=== PATIENT | male | born 1975 | race Caucasian/White ===

== ENCOUNTER 2017-07-17 20:06 | Inpatient (IN) | payer MEDICAID ==
[~2017-07-17] VITALS: Ht 175.3 cm; Wt 83.5 kg
[~2017-07-17 20:06] MED LIST: ZIPR80CA2 PO
[2017-07-17] MEDS ORDERED: ZIPRASIDONE 20 MG INJ IM ONE ×2 (20:48→21:00)
[2017-07-17 20:58] LABS: MICROSCOPIC NOT IND
[2017-07-17 21:02] LABS: CULTURE INDICATED? NO
[2017-07-17 21:05] LABS: ALANINE AMINOTRANSFERASE 200 U/L (12-78); ALBUMIN 2.8 g/dL (3.4-5.0); ANION GAP 10 mmol/L (5-15); CALCIUM 8.7 mg/dL (8.5-10.1); CHLORIDE 110 mmol/L (98-107); CREATININE 0.93 mg/dL (0.7-1.3)
[2017-07-17 21:07] LABS: ALKALINE PHOSPHATASE 142 U/L (45-117); BILIRUBIN,TOTAL 0.2 mg/dL (0.2-1.0); TOTAL PROTEIN 6.9 g/dL (6.4-8.2)
[2017-07-17 21:19] LABS: AMPHETAMINE SCREEN, URINE Negative (Negative); BARBITURATE SCREEN, URINE Negative (Negative); BENZODIAZEPINE SCREEN, URINE Negative (Negative); CANNABINOID SCREEN, URINE Negative (Negative); COCAINE SCREEN, URINE Negative (Negative); METHADONE SCREEN, URINE Negative (Negative); OPIATE SCREEN, URINE Negative (Negative)
[2017-07-17 21:20] LABS: BASOPHILS # (AUTO) 0.06 x10^3/uL (0-0.1); BASOPHILS % (AUTO) 1 % (0-1); EOSINOPHILS # (AUTO) 0.06 x10^3/uL (0-0.4); EOSINOPHILS % (AUTO) 0 % (1-7); LYMPHOCYTES # (AUTO) 3.48 x10^3/uL (1-3.4); LYMPHOCYTES % (AUTO) 27 % (22-44); MD MORPH REVIEW ONLY; MEAN CORPUSCULAR HEMOGLOBIN 23.1 pg (27.5-34.5); MEAN CORPUSCULAR HGB CONC 32.3 g/dL (33.2-36.2); MEAN CORPUSCULAR VOLUME 71.4 fL (81-97); MEAN PLATELET VOLUME 8.3 fL (7.4-10.4); MONOCYTES # (AUTO) 1.52 x10^3/uL (0.2-0.8); MONOCYTES % (AUTO) 12 % (2-9); NEUTROPHILS # (AUTO) 7.69 x10^3/uL (1.8-6.8); NEUTROPHILS % (AUTO) 60 % (42-75); PLATELET COUNT 420 x10^3/uL (130-400); RED BLOOD COUNT 4.04 x10^6/uL (4.38-5.82); RED CELL DISTRIBUTION WIDTH 22.5 % (9.4-14.8)
[2017-07-17 21:21] LABS: <PLATELET ESTIMATE> ADEQUATE; <PLT MORPHOLOGY> NORMAL PLT MORPH; ANISOCYTOSIS 1+; HYPOCHROMIA 1+; MICROCYTOSIS 1+; POLYCHROMASIA 1+
[2017-07-17] MEDS ORDERED: ONDANSETRON 2MG/ML, 2ML IVPush PRN (23:00)
[2017-07-17] MEDS: BISACODYL 10 MG SUPP PR SCH (23:30)
[2017-07-17] MEDS ORDERED: PROMETHAZINE 25 MG/ML, 1ML IM PRN (23:30)
[2017-07-17] MEDS ORDERED: ACETAMINOPHEN 325 MG TABLET PO PRN (23:30)
[2017-07-17] MEDS ORDERED: BISACODYL 10 MG SUPP PR PRN (23:30)
[2017-07-18] VITALS: BP 110/68
[2017-07-18] MEDS: CIPROFLOXACIN/PMX 400MG/200ML 200 ML IV SCH ×2 (01:04→13:38)
[2017-07-18] MEDS: SODIUM CHLORIDE 0.9% 1,000 ML IV SCH ×2 (01:05→08:38)
[2017-07-18] MEDS: PANTOPRAZOLE 40 MG IV IVPush SCH ×3 (01:05→22:10)
[2017-07-18] MEDS: NICOTINE 21 MG/24 HR PATCH.TD24 TD SCH ×2 (01:06→22:11)
[2017-07-18] MEDS: morphine SULFATE 10 MG/ML, 1ML IVPush PRN ×3 (01:51→22:10)
[2017-07-18] MEDS: METRONIDAZOLE PMX 500MG/100ML 100 ML IV SCH ×3 (02:46→22:10)
[2017-07-18 05:59] LABS: MEAN CORPUSCULAR HEMOGLOBIN 23.1 pg (27.5-34.5); MEAN CORPUSCULAR HGB CONC 32.8 g/dL (33.2-36.2); MEAN CORPUSCULAR VOLUME 70.4 fL (81-97); PLATELET COUNT 375 x10^3/uL (130-400); RED BLOOD COUNT 3.78 x10^6/uL (4.38-5.82); RED CELL DISTRIBUTION WIDTH 22.3 % (9.4-14.8)
[2017-07-18 06:08] LABS: ALBUMIN 2.6 g/dL (3.4-5.0); ANION GAP 6 mmol/L (5-15); CALCIUM 8.7 mg/dL (8.5-10.1); CHLORIDE 110 mmol/L (98-107)
[2017-07-18 06:13] LABS: ALANINE AMINOTRANSFERASE 176 U/L (12-78); ALKALINE PHOSPHATASE 126 U/L (45-117); BILIRUBIN,TOTAL 0.4 mg/dL (0.2-1.0); CREATININE 0.62 mg/dL (0.7-1.3); TOTAL PROTEIN 6.3 g/dL (6.4-8.2)
[2017-07-18 06:18] LABS: BASOPHILS # (AUTO) 0.04 x10^3/uL (0-0.1); BASOPHILS % (AUTO) 1 % (0-1); EOSINOPHILS # (AUTO) 0.08 x10^3/uL (0-0.4); EOSINOPHILS % (AUTO) 1 % (1-7); LYMPHOCYTES # (AUTO) 2.72 x10^3/uL (1-3.4); LYMPHOCYTES % (AUTO) 30 % (22-44); MD SCAN; MONOCYTES # (AUTO) 1.22 x10^3/uL (0.2-0.8); MONOCYTES % (AUTO) 14 % (2-9); NEUTROPHILS # (AUTO) 4.95 x10^3/uL (1.8-6.8); NEUTROPHILS % (AUTO) 55 % (42-75)
[2017-07-18 07:45] VITALS: BP 117/70
[2017-07-18] MEDS ORDERED: ZIPRASIDONE 40MG CAPSULE ONE (08:25)
[2017-07-18] MEDS: BISACODYL 10 MG SUPP PR SCH (08:30)
[2017-07-18] MEDS: ZIPRASIDONE 20MG CAPSULE PO SCH (08:30)
[2017-07-18] MEDS ORDERED: IRON DEXTRAN IV PER PHARMACY IV PRN (12:00)
[2017-07-18] MEDS ORDERED: EPINEPHRINE 1 MG/ML, 1ML ONE (12:20)
[2017-07-18] MEDS ORDERED: IRON DEXTRAN COMPLEX 25 MG in SODIUM CHLORIDE 0.9% 50 ML IV ONE (13:00)
[2017-07-18] MEDS ORDERED: IRON DEXTRAN COMPLEX 1,700 MG in SODIUM CHLORIDE 0.9% 250 ML IV ONE (14:00)
[2017-07-18 14:05] VITALS: BP 127/73
[2017-07-18 14:17] VITALS: BP 118/70
[2017-07-18 19:31] VITALS: BP 110/70
[2017-07-19] MEDS: SODIUM CHLORIDE 0.9% 1,000 ML IV SCH ×3 (01:00→21:47)
[2017-07-19] MEDS: CIPROFLOXACIN/PMX 400MG/200ML 200 ML IV SCH (01:43)
[2017-07-19 03:07] VITALS: BP 136/87
[2017-07-19] MEDS: METRONIDAZOLE PMX 500MG/100ML 100 ML IV SCH (05:04)
[2017-07-19] MEDS: morphine SULFATE 10 MG/ML, 1ML IVPush PRN ×4 (05:04→21:46)
[2017-07-19 07:38] VITALS: BP 120/83
[2017-07-19] MEDS: BISACODYL 10 MG SUPP PR SCH (08:33)
[2017-07-19] MEDS: ZIPRASIDONE 20MG CAPSULE PO SCH (08:33)
[2017-07-19] MEDS: CLARITHROMYCIN 500 MG TABLET PO SCH ×2 (09:13→21:47)
[2017-07-19 10:52] LABS: MEAN CORPUSCULAR HEMOGLOBIN 22.7 pg (27.5-34.5); MEAN CORPUSCULAR HGB CONC 32.1 g/dL (33.2-36.2); MEAN CORPUSCULAR VOLUME 70.7 fL (81-97); MEAN PLATELET VOLUME 8.3 fL (7.4-10.4); PLATELET COUNT 417 x10^3/uL (130-400); RED BLOOD COUNT 4.43 x10^6/uL (4.38-5.82)
[2017-07-19 10:56] LABS: ALBUMIN 2.8 g/dL (3.4-5.0); ANION GAP 8 mmol/L (5-15); CALCIUM 9.2 mg/dL (8.5-10.1); CHLORIDE 107 mmol/L (98-107); CREATININE 0.79 mg/dL (0.7-1.3)
[2017-07-19 10:59] LABS: ALKALINE PHOSPHATASE 147 U/L (45-117); BILIRUBIN,TOTAL 0.2 mg/dL (0.2-1.0); TOTAL PROTEIN 6.9 g/dL (6.4-8.2)
[2017-07-19 11:01] LABS: ALANINE AMINOTRANSFERASE 211 U/L (12-78)
[2017-07-19 11:13] LABS: BASOPHILS # (AUTO) 0.01 x10^3/uL (0-0.1); BASOPHILS % (AUTO) 0 % (0-1); EOSINOPHILS # (AUTO) 0.08 x10^3/uL (0-0.4); EOSINOPHILS % (AUTO) 1 % (1-7); LYMPHOCYTES # (AUTO) 2.89 x10^3/uL (1-3.4); LYMPHOCYTES % (AUTO) 26 % (22-44); MD MORPH REVIEW ONLY; MONOCYTES # (AUTO) 1.64 x10^3/uL (0.2-0.8); MONOCYTES % (AUTO) 15 % (2-9); NEUTROPHILS # (AUTO) 6.49 x10^3/uL (1.8-6.8); NEUTROPHILS % (AUTO) 58 % (42-75)
[2017-07-19 11:29] LABS: ANISOCYTOSIS 2+; HYPOCHROMIA 1+; MICROCYTOSIS 1+; POLYCHROMASIA 1+
[2017-07-19 11:30] LABS: <PLATELET ESTIMATE> ADEQUATE; <PLT MORPHOLOGY> NORMAL PLT MORPH
[2017-07-19] MEDS: metroNIDAZOLE 500 MG TABLET PO SCH ×2 (12:30→21:47)
[2017-07-19 14:30] VITALS: BP 119/75
[2017-07-19] MEDS ORDERED: MORPHINE SULFATE 4 MG/ML, 1ML ONE ×2 (18:37→21:43)
[2017-07-19 18:41] VITALS: BP 125/71
[2017-07-19] MEDS: NICOTINE 21 MG/24 HR PATCH.TD24 TD SCH (21:47)
[2017-07-20 00:17] VITALS: BP 118/72
[2017-07-20] MEDS ORDERED: MORPHINE SULFATE 4 MG/ML, 1ML ONE (05:05)
[2017-07-20] MEDS: morphine SULFATE 10 MG/ML, 1ML IVPush PRN (05:15)
[2017-07-20 05:27] LABS: ALBUMIN 2.8 g/dL (3.4-5.0); ANION GAP 6 mmol/L (5-15); CALCIUM 9.5 mg/dL (8.5-10.1); CHLORIDE 105 mmol/L (98-107); CREATININE 0.67 mg/dL (0.7-1.3)
[2017-07-20 05:29] LABS: ALKALINE PHOSPHATASE 156 U/L (45-117); BILIRUBIN,TOTAL 0.4 mg/dL (0.2-1.0); TOTAL PROTEIN 7.2 g/dL (6.4-8.2)
[2017-07-20 05:39] LABS: ALANINE AMINOTRANSFERASE 234 U/L (12-78)
[2017-07-20 05:46] LABS: MEAN CORPUSCULAR HEMOGLOBIN 23.1 pg (27.5-34.5); MEAN CORPUSCULAR HGB CONC 32.5 g/dL (33.2-36.2); MEAN PLATELET VOLUME 8.3 fL (7.4-10.4); PLATELET COUNT 421 x10^3/uL (130-400); RED BLOOD COUNT 4.39 x10^6/uL (4.38-5.82); RED CELL DISTRIBUTION WIDTH 22.3 % (9.4-14.8)
[2017-07-20 06:23] LABS: BASOPHILS # (AUTO) 0.01 x10^3/uL (0-0.1); BASOPHILS % (AUTO) 0 % (0-1); EOSINOPHILS # (AUTO) 0.05 x10^3/uL (0-0.4); EOSINOPHILS % (AUTO) 1 % (1-7); LYMPHOCYTES # (AUTO) 1.92 x10^3/uL (1-3.4); LYMPHOCYTES % (AUTO) 21 % (22-44); MD MORPH REVIEW ONLY; MONOCYTES # (AUTO) 1.06 x10^3/uL (0.2-0.8); MONOCYTES % (AUTO) 12 % (2-9); NEUTROPHILS # (AUTO) 5.95 x10^3/uL (1.8-6.8); NEUTROPHILS % (AUTO) 66 % (42-75)
[2017-07-20 06:24] LABS: ANISOCYTOSIS 2+; HYPOCHROMIA 1+; MICROCYTOSIS 1+; POLYCHROMASIA 1+; TARGET CELLS 1+
[2017-07-20 06:28] LABS: <PLATELET ESTIMATE> ADEQUATE; <PLT MORPHOLOGY> NORMAL PLT MORPH
[2017-07-20 08:00] VITALS: BP 125/84
[2017-07-20] MEDS: BISACODYL 10 MG SUPP PR SCH (08:15)
[2017-07-20] MEDS ORDERED: ZIPR60CA2 PO (08:23)
[2017-07-20 08:30] LABS: INTERNATIONAL NORMALIZED RATIO 0.94 (0.93-1.1); PROTHROMBIN TIME 9.8 Seconds (9.6-11.5)
[2017-07-20] MEDS ORDERED: METR500T PO (08:37)
[2017-07-20] MEDS ORDERED: CLAR500T PO (08:37)
[2017-07-20] MEDS: CLARITHROMYCIN 500 MG TABLET PO SCH (08:39)
[2017-07-20] MEDS: ZIPRASIDONE 20MG CAPSULE PO SCH (08:40)
[2017-07-20] MEDS: metroNIDAZOLE 500 MG TABLET PO SCH (08:40)
== END 2017-07-20 10:00 | disposition home or self-care (01) | DRG 442 ==
LOC: ED 22:35 → EDIP 23:17 → 4WST 23:28 → 3NE 07-18 07:57
PROVIDERS: ADMIT Internal Medicine; ATTEND Internal Medicine
DX: B17.10 Acute hepatitis C without hepatic coma (principal); E44.0 Moderate protein-calorie malnutrition; R65.10 Systemic inflammatory response syndrome (SIRS) of non-infectious origin without acute organ dysfunction; K51.90 Ulcerative colitis, unspecified, without complications; D50.9 Iron deficiency anemia, unspecified; F17.210 Nicotine dependence, cigarettes, uncomplicated; B96.81 Helicobacter pylori [H. pylori] as the cause of diseases classified elsewhere; D72.829 Elevated white blood cell count, unspecified; K29.80 Duodenitis without bleeding; J45.909 Unspecified asthma, uncomplicated; R00.0 Tachycardia, unspecified; K59.00 Constipation, unspecified; Z88.0 Allergy status to penicillin; Z68.27 Body mass index [BMI] 27.0-27.9, adult
CPT/HCPCS: 36415; 74022; 74176; 80053; 80074; 80307; 81003; 82274; 82728; 83036; 83540; 83550; 83690; 83735; 84100; 85025; 85610; 86677; 86850; 86900; 87040; 87521; 93005; 96372; J0744; J1750; J3486; C9113; J2270; J7030; J7050

== ENCOUNTER 2017-09-07 10:00 | Emergency (ER) | payer MEDICAID ==
[~2017-09-07] VITALS: Ht 175.3 cm; Wt 88.5 kg
[~2017-09-07 10:00] MED LIST changes: +CLAR500T PO; +METR500T PO; +ZIPR60CA2 PO
[2017-09-07] MEDS ORDERED: ALPR1TAB2 PO (10:28)
[2017-09-07 11:07] LABS: MICROSCOPIC NOT IND
[2017-09-07 11:15] LABS: CULTURE INDICATED? NO
[2017-09-07 11:44] LABS: MEAN CORPUSCULAR HEMOGLOBIN 29.3 pg (27.5-34.5); MEAN CORPUSCULAR VOLUME 86.2 fL (81-97); MEAN PLATELET VOLUME 8.5 fL (7.4-10.4); PLATELET COUNT 276 x10^3/uL (130-400); RED BLOOD COUNT 4.49 x10^6/uL (4.38-5.82)
[2017-09-07 11:53] LABS: ALANINE AMINOTRANSFERASE 460 U/L (12-78); ALBUMIN 3.1 g/dL (3.4-5.0); ANION GAP 7 mmol/L (5-15); CALCIUM 9.6 mg/dL (8.5-10.1); CHLORIDE 109 mmol/L (98-107); CREATININE 0.71 mg/dL (0.7-1.3)
[2017-09-07 11:54] LABS: <PLATELET ESTIMATE> ADEQUATE; <PLT MORPHOLOGY> NORMAL PLT MORPH; ANISOCYTOSIS 2+; BASOPHILS # (AUTO) 0.04 x10^3/uL (0-0.1); BASOPHILS % (AUTO) 1 % (0-1); EOSINOPHILS # (AUTO) 0.08 x10^3/uL (0-0.4); EOSINOPHILS % (AUTO) 1 % (1-7); LYMPHOCYTES % (AUTO) 27 % (22-44); MD MORPH REVIEW ONLY; MONOCYTES # (AUTO) 0.84 x10^3/uL (0.2-0.8); MONOCYTES % (AUTO) 14 % (2-9); NEUTROPHILS # (AUTO) 3.41 x10^3/uL (1.8-6.8); NEUTROPHILS % (AUTO) 57 % (42-75); POLYCHROMASIA 1+; TARGET CELLS 1+
[2017-09-07 11:55] LABS: ALKALINE PHOSPHATASE 175 U/L (45-117); BILIRUBIN,TOTAL 0.4 mg/dL (0.2-1.0); TOTAL PROTEIN 7.2 g/dL (6.4-8.2)
[2017-09-07] MEDS ORDERED: HYDROcodone/APAP 5/325 TABLET ONE (12:26)
[2017-09-07] MEDS ORDERED: HYDROcodone/APAP 5/325 TABLET PO ONE (12:30)
[2017-09-07] MEDS ORDERED: AZITHROMYCIN 500 MG TABLET PO ONE (14:00)
[2017-09-07 14:08] VITALS: BP 116/64
[2017-09-07] MEDS ORDERED: AZITHROMYCIN 500 MG TABLET ONE (14:10)
== END 2017-09-07 14:40 | disposition home or self-care (01) ==
LOC: ED 11:04
DX: N45.1 Epididymitis (principal); R73.9 Hyperglycemia, unspecified; R74.0 Nonspecific elevation of levels of transaminase and lactic acid dehydrogenase [LDH]; R16.0 Hepatomegaly, not elsewhere classified; F15.10 Other stimulant abuse, uncomplicated; F17.200 Nicotine dependence, unspecified, uncomplicated
CPT/HCPCS: 36415; 74176; 76870; 80053; 81003; 83605; 83690; 85025; 99285

== ENCOUNTER 2017-09-30 06:44 | Emergency (ER) | payer MEDICAID ==
[~2017-09-30] VITALS: Ht 175.3 cm; Wt 91.0 kg
[~2017-09-30 06:44] MED LIST changes: +ALPR1TAB2 PO
[2017-09-30 06:58] VITALS: BP 125/80
[2017-09-30] MEDS ORDERED: PREDNISONE PO (07:22)
[2017-09-30] MEDS ORDERED: METF500T4 PO (07:22)
[2017-09-30] MEDS ORDERED: LORA-445 PO (07:22)
[2017-09-30] MEDS ORDERED: HYDROcodone/APAP 5/325 TABLET ONE (07:25)
[2017-09-30] MEDS ORDERED: MAALOX/HYOSCYAMINE/LIDOCAINE 45 ML BTL ONE (07:25)
[2017-09-30] MEDS ORDERED: HYDROcodone/APAP 5/325 TABLET PO ONE (07:30)
[2017-09-30] MEDS ORDERED: MAALOX/HYOSCYAMINE/LIDOCAINE 45 ML BTL PO ONE (07:30)
== END 2017-09-30 08:12 | disposition home or self-care (01) ==
LOC: ED 08:04
DX: R07.89 Other chest pain (principal); R10.84 Generalized abdominal pain; K51.90 Ulcerative colitis, unspecified, without complications; Z88.0 Allergy status to penicillin
CPT/HCPCS: 93005; 99283